=== PATIENT | female | born 1980 | race Hispanic/Latino ===

== ENCOUNTER → 2022-12-02 | Outpatient (CLI) | payer OTHER | END | disposition home or self-care (01) | LOC: RAH 11:47 | PROVIDERS: ATTEND Obstetrics & Gynecology | DX: Z12.31 Encounter for screening mammogram for malignant neoplasm of breast (principal); N64.89 Other specified disorders of breast | CPT/HCPCS: 77067 ==

== ENCOUNTER → 2023-12-04 | Outpatient (CLI) | payer OTHER | END | disposition home or self-care (01) | LOC: RAH 14:12 | PROVIDERS: ATTEND Obstetrics & Gynecology | DX: Z12.31 Encounter for screening mammogram for malignant neoplasm of breast (principal); R92.333 Mammographic heterogeneous density, bilateral breasts | CPT/HCPCS: 77067 ==

== ENCOUNTER → 2024-06-04 | Outpatient (CLI) | payer OTHER ==
--- NOTE | 2024-06-04 15:05 | HMCIMG ---
CT CHEST HIGH RESOLUTION (WO) REASON: WHEEZING COMPARISON: None TECHNIQUE: High-resolution CT chest technique was performed. Routine 5 mm sections are obtained through the lungs. 1 mm high-resolution images are obtained at intervals throughout both lungs in inspiration and expiration. FINDINGS: There is normal-appearing pulmonary parenchyma. There are no focal masses or infiltrates. There is no vascular congestion or pleural effusion. High-resolution images show normal interstitial pattern. There is no fibrosis. There is no honeycombing or bronchiectasis. There are no blebs or bulla. Hilar and mediastinal structures appear normal. Chest wall appears unremarkable as do visualized upper abdominal structures. IMPRESSION: 1. Negative high-resolution CT chest.
== END | disposition home or self-care (01) ==
LOC: RAH 13:25
PROVIDERS: ATTEND Internal Medicine Critical Care Medicine
DX: R06.2 Wheezing (principal)
CPT/HCPCS: 71250